=== PATIENT | female | born 1985 | race Caucasian/White ===

== ENCOUNTER 2021-03-24 10:33 | Outpatient (CLI) | payer BC, OTHER ==
[~2021-03-24 10:33] MED LIST: IBUP-1222 PO; OXYC1TAB12 PO
[2021-03-24] MEDS ORDERED: ZINC PO (10:56)
[2021-03-24] MEDS ORDERED: [UNRECOGNIZED DRUG - OTHER] PO (10:56)
[2021-03-24] MEDS ORDERED: MULT-658 PO (10:56)
[2021-03-24] MEDS ORDERED: VITAMIN D GUMMIES PO (10:56)
[2021-03-24 11:29] LABS: BASOPHILS % (AUTO) 1 % (0-1); EOSINOPHILS % (AUTO) 4 % (1-7); LYMPHOCYTES % (AUTO) 39 % (22-44); MEAN CORPUSCULAR HGB CONC 33.6 g/dL (32.4-35.8); MEAN PLATELET VOLUME 9.9 fL (7.4-10.4); MONOCYTES % (AUTO) 10 % (2-9); NEUTROPHILS % (AUTO) 47 % (42-75); PLATELET COUNT 203 x10^3/uL (130-400); RED BLOOD COUNT 4.68 x10^6/uL (3.82-5.3); RED CELL DISTRIBUTION WIDTH 13.5 % (9.6-15.2)
[2021-03-24 11:37] LABS: CALCIUM 9.2 mg/dL (8.5-10.1); CREATININE 0.57 mg/dL (0.55-1.02)
[2021-03-24 12:08] LABS: ANION GAP 4 mmol/L (5-15); CHLORIDE 107 mmol/L (98-107)
== END 2021-03-24 23:59 | disposition home or self-care (01) ==
LOC: STAR 10:33
PROVIDERS: ATTEND Obstetrics & Gynecology
DX: Z01.812 Encounter for preprocedural laboratory examination (principal); Z20.822 Contact with and (suspected) exposure to COVID-19
CPT/HCPCS: 36415; 80048; 84702; 85025; U0003

== ENCOUNTER 2021-03-30 10:27 | Day surgery (SDC) | payer BC, OTHER ==
[~2021-03-30] VITALS: Ht 167.6 cm; Wt 69.6 kg
[~2021-03-30 10:27] MED LIST changes: +MULT-658 PO; -OXYC1TAB12 PO; +OXYC1TAB14 PO; +VITAMIN D GUMMIES PO; +ZINC PO; +[UNRECOGNIZED DRUG - OTHER] PO
[2021-03-30 10:52] VITALS: BP 127/89
[2021-03-30] MEDS ORDERED: PROMETHAZINE 25 MG/ML, 1ML IVPush PRN (11:00)
[2021-03-30] MEDS ORDERED: MEPERIDINE/PF 25MG/0.5ML IVPush PRN (11:00)
[2021-03-30] MEDS ORDERED: HYDROmorphone 1 MG/ML, 1ML INJ IVPush PRN (11:00)
[2021-03-30] MEDS ORDERED: LACTATED RINGERS 1,000 ML IV SCH (11:00)
[2021-03-30] MEDS ORDERED: ONDANSETRON 2MG/ML, 2ML IVPush PRN (11:00)
[2021-03-30] MEDS ORDERED: CHLORHEXIDINE 15 ML UDC PO ONE (11:00)
[2021-03-30 11:35] LABS: HCG UR SG 1.027 (1.003-1.030)
[2021-03-30] MEDS ORDERED: BUPIVACAINE/PF 0.25% ONE (12:21)
[2021-03-30] MEDS ORDERED: VASOPRESSIN 20 UNIT/ML, 1ML ONE (12:22)
[2021-03-30] MEDS ORDERED: SILVER NITRATE STICK TP ONE (12:22)
[2021-03-30] MEDS ORDERED: SCOPOLAMINE 1MG PATCH TD ONE (12:37)
[2021-03-30] MEDS ORDERED: SCOPOLAMINE 1MG PATCH TD SCH (13:00)
[2021-03-30] MEDS ORDERED: FENTANYL PF 100 MCG/2ML ONE (14:11)
[2021-03-30] MEDS ORDERED: OXYcodone 5 MG/5 ML ORAL.SOL UDC ONE (14:12)
[2021-03-30] MEDS: FENTANYL PF 100 MCG/2ML IV PRN ×2 (14:12→14:17)
[2021-03-30] MEDS ORDERED: HYDROcodone/APAP 5/325 TABLET PO PRN (16:00)
== END 2021-03-30 16:08 | disposition home or self-care (01) ==
LOC: OUT 10:27
PROVIDERS: ATTEND Obstetrics & Gynecology
DX: Z30.2 Encounter for sterilization (principal); N92.0 Excessive and frequent menstruation with regular cycle; N73.6 Female pelvic peritoneal adhesions (postinfective); K65.9 Peritonitis, unspecified; Z79.899 Other long term (current) drug therapy; Z82.49 Family history of ischemic heart disease and other diseases of the circulatory system
CPT/HCPCS: 58563; 58670; 81025; 88302; 88305; J1170; J2405; J3010; J7120